=== PATIENT | male | born 1965 | race Two or more races ===

== ENCOUNTER 2023-05-31 16:45 | Emergency (ER) | payer OTHER ==
[~2023-05-31] VITALS: Ht 182.9 cm; Wt 102.1 kg
[2023-05-31] MEDS ORDERED: KETOROLAC TROMETHAMINE 30 MG VIAL IM STA (17:31)
== END 2023-05-31 18:57 | disposition home or self-care (01) ==
LOC: ER 16:46
DX: S49.81XA Other specified injuries of right shoulder and upper arm, initial encounter (principal); Y93.18 Activity, surfing, windsurfing and boogie boarding; Y93.89 Activity, other specified; Y92.832 Beach as the place of occurrence of the external cause
CPT/HCPCS: 73000; 73030; 96372; 99283; J1885